=== PATIENT | male | born 1970 | race Two or more races ===

== ENCOUNTER 2023-04-14 02:33 | Emergency (ER) | payer SELFPAY ==
[~2023-04-14] VITALS: Ht 175.3 cm; Wt 113.0 kg
[2023-04-14 02:46] VITALS: BP 103/67; PULSE 90; RESP 18; O2SAT 97
== END 2023-04-14 04:43 | disposition left against medical advice (07) ==
LOC: ER 02:33 → EDBD 02:33 → ER 04:43
DX: M25.561 Pain in right knee (principal); R11.2 Nausea with vomiting, unspecified; Z53.21 Procedure and treatment not carried out due to patient leaving prior to being seen by health care provider; W01.0XXA Fall on same level from slipping, tripping and stumbling without subsequent striking against object, initial encounter; Y93.89 Activity, other specified; Y92.89 Other specified places as the place of occurrence of the external cause; Y99.8 Other external cause status